=== PATIENT | female | born 1975 | race Caucasian/White ===

== ENCOUNTER 2016-09-13 15:28 | Emergency (ER) | payer OTHER ==
[~2016-09-13] VITALS: Ht 172.7 cm; Wt 104.3 kg
[~2016-09-13 15:28] MED LIST: ALPR0.254 PO; ASPI1TAB30 PO; ASPI325T4 PO; AZIT250T PO; FENO54TA PO; HYDR-2678 PO; METF500T4 PO; METH4TAB2 PO; ONDA4TAB10 SL; PROM25SU32 RC; SIMV80TA3 PO
[2016-09-13] MEDS ORDERED: ASPI81TA2 PO (15:53)
--- NOTE | 2016-09-13 15:53 | PHYS DOC ---
Past Medical History Past Medical History: Anxiety, Diabetes-Type II Additional Past Medical Histor: PANCREATITIS Past Surgical History: Cholecystectomy, Tubal ligation Additional Past Surgical Histo: LAPROSCOPIC ESOPHAGEAL WRAP, HERNIA REPAIR Alcohol Use: Occasionally Drug Use: None Adult General Chief Complaint Chief Complaint: elevated diastolic blood pressure HPI HPI 40-year-old female presenting to the emergency department today with chest pain for 4 days. She describes as a sharp pain in her right chest is nonradiating. It is mild to moderate without alleviating or exacerbating factors. She was at physical therapy today for "chronic numbness in her left side of her body since June 2015 " when the physical therapist took the patient's blood pressure in the patient's diastolic blood pressure was "elevated at 90 mmHg." The patient was then sent here for further evaluation workup and care. The patient denies her chest pain being sudden in onset. She denies it being a tearing sensation. She denies it migrating. Review of systems is negative for cough fevers chills. She denies unilateral leg swelling hemoptysis personal or family history of blood clotting disorders. All other review of systems is negative unless otherwise noted in history of present illness. Review of Systems Review of Systems SEE ABOVE. Allergies Allergies Allergies Coded Allergies Type Severity Reaction Last Updated Verified Penicillins Allergy Intermediate 10/23/13 Yes Sulfa (Sulfonamide Antibiotics) Allergy Intermediate Itching 04/12/16 Yes sulfur dioxide Allergy Intermediate 04/12/16 Yes tramadol Allergy Intermediate 06/20/15 Yes Physical Exam Physical Exam Constitutional: Well developed, well nourished, no acute distress, non-toxic appearance. HENT: Normocephalic, atraumatic, bilateral external ears normal, oropharynx moist, no oral exudates, nose normal. [] Eyes: PERRLA, EOMI, conjunctiva normal, no discharge. Neck: Normal range of motion, no tenderness, supple, no stridor. [] Cardiovascular:Heart rate regular rhythm, no murmur Lungs & Thorax: Bilateral breath sounds clear to auscultation [] Abdomen: Bowel sounds normal, soft, no tenderness, no masses, no pulsatile masses. Skin: Warm, dry, no erythema, no rash. Back: No tenderness, no CVA tenderness. [] Extremities: No tenderness, no cyanosis, no clubbing, ROM intact, no edema. Neurologic: Alert and oriented X 3, normal motor function, normal sensory function, no focal deficits noted. [] Psychologic: Affect normal, judgement normal, mood normal. [] Current Patient Data Vital Signs Vital Signs Date Time Temp Pulse Resp B/P Pulse Ox O2 Delivery O2 Flow Rate FiO2 09/13/16 15:36 99 93 20 145/80 98 Room Air 99.0 Lab Values Laboratory Tests Test 09/13/16 15:50 White Blood Count 12.3x10^3/uL (4.0-11.0) H Red Blood Count 4.60x10^6/uL (3.50-5.40) Hemoglobin 14.4g/dL (12.0-15.5) Hematocrit 43.0% (36.0-47.0) Mean Corpuscular Volume 94fL (79-100) Mean Corpuscular Hemoglobin 31pg (25-35) Mean Corpuscular Hemoglobin Concent 33g/dL (31-37) Red Cell Distribution Width 14.9% (11.5-14.5) H Platelet Count 272x10^3/uL (140-400) Neutrophils (%) (Auto) 60% (31-73) Lymphocytes (%) (Auto) 29% (24-48) Monocytes (%) (Auto) 9% (0-9) Eosinophils (%) (Auto) 2% (0-3) Basophils (%) (Auto) 1% (0-3) Neutrophils # (Auto) 7.4x10^3uL (1.8-7.7) Lymphocytes # (Auto) 3.5x10^3/uL (1.0-4.8) Monocytes # (Auto) 1.1x10^3/uL (0.0-1.1) Eosinophils # (Auto) 0.2x10^3/uL (0.0-0.7) Basophils # (Auto) 0.1x10^3/uL (0.0-0.2) Sodium Level 143mmol/L (136-145) Potassium Level 4.8mmol/L (3.5-5.1) Chloride Level 106mmol/L (98-107) Carbon Dioxide Level 25mmol/L (21-32) Anion Gap 12 (6-14) Blood Urea Nitrogen 13mg/dL (7-20) Creatinine 0.6mg/dL (0.6-1.0) Estimated GFR (Cockcroft-Gault) 110.2 Glucose Level 86mg/dL (70-99) Calcium Level 9.4mg/dL (8.5-10.1) Total Bilirubin 0.4mg/dL (0.2-1.0) Direct Bilirubin < 0.1mg/dL (0.0-0.2) Aspartate Amino Transferase (AST) 45U/L (15-37) H Alanine Aminotransferase (ALT) 59U/L (14-59) Alkaline Phosphatase 69U/L (46-116) Troponin I Quantitative < 0.017ng/mL (0.000-0.055) Total Protein 7.7g/dL (6.4-8.2) Albumin 3.9g/dL (3.4-5.0) Lipase 113U/L (73-393) Laboratory Tests 09/13/16 15:50 Laboratory Tests 09/13/16 15:50 EKG EKG []EKG shows sinus rhythm with regular rate. Normal intervals. Normal axis. ST segments are congruent. Not suggestive of ACS. Reviewed by myself. Radiology/Procedures Radiology/Procedures [] Two-view chest x-ray reviewed by myself shows no obvious infiltrate or pneumothorax. Course & Med Decision Making Course & Med Decision Making Pertinent Labs and Imaging studies reviewed. (See chart for details) [] 40-year-old female presenting to the emergency department today with 4 days of chest pain. Vital signs. Pertinent physical exam findings showed a normal skull exam. Blood work obtained. EKG unremarkable. Chest x-ray obtained. Given that the patient's chest pain is been present for greater than 6 hours with only obtain one troponin. Patient had a mild leukocytosis however does not have a cough or fever. I sat down and had a long discussion with the patient about her left-sided numbness since June 2015. I explained to the patient that the best evaluation for this will be an MRI and given the timing of her symptomatology I recommended outpatient MRI over the next 5-7 days. The patient states that she is currently in the process of getting an outpatient MRI. Patient and here today demonstrated verbal understanding. Patient comfortable with plan. The patient was in discharged home to follow up with her primary care physician over the next 2-3 days as continued. [id number] discharge instructions given. Patient comfortable plan. Dragon Disclaimer Dragon Disclaimer This [facility] medical record was generated, in whole or in part, using a voice recognition dictation system. Departure Departure Impression: Primary Impression: Chest pain Disposition: 01 HOME, SELF-CARE Condition: STABLE Referrals: SHRADDHA GONZALEZ MD (PCP) Patient Instructions: Chest Pain (Nonspecific), [id number] Additional Instructions: Thank you for allowing us to participate in your care today. Followup with your primary care physician in 3 days if your symptoms do not improve. If you do not have a primary care provider you can ask for a list of our primary care providers. Return to the emergency department you have any new or concerning findings. This should be evaluated by the primary care physician and any necessary consulting services for continued management within a few days after discharge. Return to emergency room if you have any new or concerning symptoms including but not limited to fever, chills, nausea, vomiting, intractable pain, any new rashes, chest pain, shortness of air, uncontrolled bleeding, difficulty breathing, and/or vision loss. You may have been prescribed medication that can change in your level of thinking and ability to operate machinery. These medications include hydrocodone and Ativan. Also, Benadryl has been known to do this as well. Be sure to check with your pharmacist and ask if the medications you've prescribed can affect your level of consciousness. I recommend not operating heavy machinery or driving while on medication such as these. Scripts Aspirin 81 Mg Tab.chew1 Tab PO DAILY #7 TAB Ref 0 Prov:YENI JIMENES MD 09/13/16 Problem Qualifiers Primary Impression: Chest pain Chest pain type: unspecified Qualified Code: R07.9 - Chest pain, unspecified YENI JIMENES MD Sep 13, 2016 15:53
--- NOTE | 2016-09-13 15:54 | EKG ---
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
[2016-09-13 16:10] LABS: BASO # 0.1 x10^3/uL (0.0-0.2); BASO % 1 % (0-3); EOS % 2 % (0-3); HEMOGLOBIN 14.4 g/dL (12.0-15.5); LYMPH # 3.5 x10^3/uL (1.0-4.8); LYMPH % 29 % (24-48); MEAN CORPUSCULAR HEMOGLOBIN 31 pg (25-35); MEAN CORPUSCULAR HGB CONC 33 g/dL (31-37); MEAN CORPUSCULAR VOLUME 94 fL (79-100); MONO % 9 % (0-9); NEUT % 60 % (31-73); PLATELET COUNT 272 x10^3/uL (140-400); RED CELL DISTRIBUTION WIDTH 14.9 % (11.5-14.5); WHITE BLOOD COUNT 12.3 x10^3/uL (4.0-11.0)
[2016-09-13 16:16] LABS: ANION GAP 12 (6-14); BLOOD UREA NITROGEN 13 mg/dL (7-20); CALCIUM 9.4 mg/dL (8.5-10.1); CARBON DIOXIDE 25 mmol/L (21-32); CHLORIDE 106 mmol/L (98-107); CREATININE 0.6 mg/dL (0.6-1.0); GFR 110.2; GLUCOSE 86 mg/dL (70-99); POTASSIUM 4.8 mmol/L (3.5-5.1); SODIUM 143 mmol/L (136-145)
[2016-09-13 16:22] LABS: ALBUMIN 3.9 g/dL (3.4-5.0); ALK PHOS 69 U/L (46-116); ALT (SGPT) 59 U/L (14-59); AST (SGOT) 45 U/L (15-37); DIRECT BILIRUBIN < 0.1 mg/dL (0.0-0.2); TOTAL BILIRUBIN 0.4 mg/dL (0.2-1.0); TOTAL PROTEIN 7.7 g/dL (6.4-8.2)
[2016-09-13 17:28] VITALS: BP 154/72
--- NOTE | 2016-09-14 08:32 | RAD ---
Chest, 2 views, 09/13/2016: History: Chest pain, left-sided numbness Comparison is made to a study from 04/12/2016. The heart size and pulmonary vascularity are normal. No pulmonary infiltrates are seen. There is no evidence of pleural fluid. IMPRESSION: No acute cardiopulmonary abnormality is detected.
== END 2016-09-13 17:39 | disposition home or self-care (01) ==
LOC: ER 15:28
DX: R07.89 Other chest pain (principal); D72.829 Elevated white blood cell count, unspecified; R20.0 Anesthesia of skin; E11.9 Type 2 diabetes mellitus without complications; F41.9 Anxiety disorder, unspecified; Z88.0 Allergy status to penicillin; Z88.2 Allergy status to sulfonamides; Z88.5 Allergy status to narcotic agent
CPT/HCPCS: 36415; 71020; 80048; 80076; 83690; 84484; 85027; 93005; 99285-25

== ENCOUNTER → 2016-10-27 | Outpatient (CLI) | payer OTHER ==
[~2016-10-27] MED LIST changes: +ASPI81TA2 PO
--- NOTE | 2016-10-27 13:44 | RAD ---
DATE: 10/27/2016 EXAM: DIGITAL DIAGNOSTIC BILATERAL, BREAST RIGHT HISTORY: Right breast nodule COMPARISON: None available This study was interpreted with the benefit of Computerized Aided Detection (CAD). FINDINGS: There are scattered fibroglandular densities in the breasts. There is a smooth 7 mm nodule at the 1:00 location in the right breast which corresponds to the area of clinical concern. There are no calcifications in this nodule. No other breast nodule or mass is seen. There are scattered microcalcifications in both breasts with the pattern suggesting a benign etiology. Right breast ultrasound, 10/27/2016: A targeted ultrasound exam of the right breast was performed in the area of palpable concern. At the 1-2:00 location there is a small superficial hypoechoic nodule along the posterior margin of the skin. It measures 5 mm in greatest diameter. Its margins are smooth. There is faint posterior acoustic enhancement. There is no internal color flow. There appears to be a small hypoechoic tract extending into the skin. The features are most compatible with an epidermal inclusion cyst. A superficial neoplasm involving the skin is much less likely. IMPRESSION: 1. Small superficial nodule involving the skin at the 1-2:00 location in the right breast which corresponds to the area of palpable concern. This is most likely an epidermal inclusion cyst. Clinical surveillance is suggested. If it enlarges, surgical consultation is suggested. Image guided percutaneous biopsy of a possible epidermal inclusion cyst is not advisable due to cyst leakage and inflammation. 2. Otherwise unremarkable mammograms. BI-RADS CATEGORY: 3 PROBABLY BENIGN FINDING(S)-SHORT INTERVAL FOLLOW-UP SUGGESTED RECOMMENDED FOLLOW-UP: 12M 12 MONTH FOLLOW-UP PQRS compliance statement: Patient information was entered into a reminder system with a target due date for the next mammogram. Mammography is a sensitive method for finding small breast cancers, but it does not detect them all and is not a substitute for careful clinical examination. A negative mammogram does not negate a clinically suspicious finding and should not result in delay in biopsying a clinically suspicious abnormality. "Our facility is accredited by the [employer] Mammography Program."
== END | disposition home or self-care (01) ==
LOC: MAMMO 12:50
PROVIDERS: ATTEND Family Medicine
DX: N63 Unspecified lump in breast (principal)
CPT/HCPCS: 76641; G0204; 77066

== ENCOUNTER 2017-05-22 16:41 | Emergency (ER) | payer OTHER ==
[~2017-05-22 16:41] MED LIST changes: +ASPI-630 PO; -ASPI1TAB30 PO; +ASPI1TAB31 PO; -ASPI325T4 PO; +ASPI325T8 PO; -ASPI81TA2 PO
[2017-05-22] MEDS ORDERED: IOHEXOL 300 MG/ML 100ML VIAL. IV ONE (17:45)
--- NOTE | 2017-05-22 17:45 | EKG ---
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
[2017-05-22 17:48] LABS: BASO # 0.1 x10^3/uL (0.0-0.2); BASO % 1 % (0-3); EOS % 2 % (0-3); HEMATOCRIT 45.7 % (36.0-47.0); HEMOGLOBIN 15.3 g/dL (12.0-15.5); LYMPH # 3.5 x10^3/uL (1.0-4.8); LYMPH % 32 % (24-48); MEAN CORPUSCULAR HEMOGLOBIN 31 pg (25-35); MEAN CORPUSCULAR HGB CONC 33 g/dL (31-37); MEAN CORPUSCULAR VOLUME 94 fL (79-100); MONO % 7 % (0-9); NEUT % 58 % (31-73); PLATELET COUNT 278 x10^3/uL (140-400); RED BLOOD COUNT 4.88 x10^6/uL (3.50-5.40); RED CELL DISTRIBUTION WIDTH 13.9 % (11.5-14.5)
[2017-05-22 17:59] LABS: CALCIUM 8.9 mg/dL (8.5-10.1); CREATININE 0.6 mg/dL (0.6-1.0); GFR 109.6; POTASSIUM 4.2 mmol/L (3.5-5.1)
[2017-05-22] MEDS ORDERED: CONTRAST GIVEN MC PRN (18:00)
[2017-05-22] MEDS ORDERED: ONDANSETRON PF 4 MG/2 ML VIAL. IV ONE ×2 (18:00)
[2017-05-22] MEDS ORDERED: IV NORMAL SALINE 1000ML BAG 1,000 ML IV SCH (18:00)
[2017-05-22 18:04] LABS: ALBUMIN/GLOBULIN RATIO 1.1 (1.0-1.7); TOTAL BILIRUBIN 0.2 mg/dL (0.2-1.0); TOTAL PROTEIN 7.6 g/dL (6.4-8.2)
--- NOTE | 2017-05-22 18:16 | ED.ADGEN ---
Past Medical History Past Medical History: Anxiety, Diabetes-Type II, Other Additional Past Medical Histor: PANCREATITIS Past Surgical History: Cholecystectomy, Tubal ligation, Other Additional Past Surgical Histo: LAPROSCOPIC ESOPHAGEAL WRAP, HERNIA REPAIR Alcohol Use: Occasionally Drug Use: None Adult General Chief Complaint Chief Complaint: HEADACHE HPI HPI Patient is a 41 year old woman, history of type 2 diabetes mellitus, off medications after weight loss diet control, who presents to the emergency department with a complaint of a posterior headache for the past 4 days. Patient states that she first noted headache in the back of her neck, radiating into the upper part of her shoulders, states it is a burning sensation that radiates up the back part of her head, associated with blurred vision, and a feeling of being off balance. She states that she feels nauseous as well, denies any vomiting, any focal weakness, states that occasionally he'll have "lightninglike" pain shooting into her arms. She denies any injuries, any chiropractic visits or medical interventions, states that she was seen at another hospital 2 days ago, and was discharged home with Percocet, naproxen, and Flexeril. She started to follow up with primary care provider. She states his grandson today because she is feeling worse, cannot see her primary until Tuesday. Patient denies any falls or injuries, any recent travel or surgery, any chest pain, states she has occasional shortness of breath, no cough, no diarrhea, no swelling extremities, no rashes, no ear pain, no sore throat or rhinorrhea, no nasal congestion. Denies any similar symptoms previously. She states her last dose of medication about 6 hours ago. She states that the medication "masks the pain", but she is still feeling dizzy and off-balance. Patient noted be tachycardic, heart rate in the 1 teens upon arrival to the emergency department. She states that she's been eating and drinking well aside from the nausea. Review of Systems Review of Systems Constitutional: Denies fever or chills. [] Eyes: Denies change in visual acuity. [] HENT: Denies nasal congestion or sore throat. [] Respiratory: Denies cough or shortness of breath. [] Cardiovascular: Denies chest pain or edema. [] GI: Denies abdominal pain, nausea, vomiting, bloody stools or diarrhea. [] : Denies dysuria. [] Musculoskeletal: Denies back pain or joint pain. [] Integument: Denies rash. [] Neurologic: Posterior headache, and neck pain, no focal weakness, occasional "lightning" shooting sensations in her upper extremities. Endocrine: Denies polyuria or polydipsia. [] Lymphatic: Denies swollen glands. [] Psychiatric: Denies depression or anxiety. [] Current Medications Current Medications Current Medications Medications (Trade) Dose Ordered Sig/Amber Start Time Stop Time Status Last Admin Dose Admin Info (Do NOT chart on this entry -- for MONITORING) 1 each PRN DAILY PRN 05/22/17 18:00 05/22/17 20:56 DC Iohexol (Omnipaque 300 Mg/ml) 75 ml 1X ONCE 05/22/17 17:45 05/22/17 17:48 DC 05/22/17 18:07 75 ML Ketorolac Tromethamine (Toradol) 10 mg 1X ONCE 05/22/17 19:45 05/22/17 19:46 DC 05/22/17 19:28 10 MG Lidocaine HCl (Xylocaine-Mpf 1% Vial) 5 ml 1X ONCE 05/22/17 19:45 05/22/17 19:46 DC 05/22/17 19:52 5 ML Ondansetron HCl (Zofran) 4 mg 1X ONCE 05/22/17 18:00 05/22/17 18:01 DC Sodium Chloride 1,000 ml @ 1,000 mls/hr Q1H 05/22/17 18:00 05/22/17 18:59 DC 05/22/17 17:58 1,000 MLS/HR Allergies Allergies Allergies Coded Allergies Type Severity Reaction Last Updated Verified Penicillins Allergy Intermediate 10/23/13 Yes Sulfa (Sulfonamide Antibiotics) Allergy Intermediate Itching 04/12/16 Yes sulfur dioxide Allergy Intermediate 04/12/16 Yes tramadol Allergy Intermediate 06/20/15 Yes Physical Exam Physical Exam Constitutional: Well developed, well nourished, no acute distress, non-toxic appearance. [] HENT: Normocephalic, atraumatic, bilateral external ears normal, oropharynx moist, no oral exudates, nose normal. [] Eyes: PERRLA, EOMI, conjunctiva normal, no discharge. [] Neck: Normal range of motion, no tenderness, supple, no stridor. [] Cardiovascular:Heart rate regular rhythm, no murmur , S1, S2, no rubs or gallops , mildly tachycardic.[] Lungs & Thorax: Bilateral breath sounds clear to auscultation, no wheezing, rhonchi, rales. No chest wall crepitus or tenderness. [] Abdomen: Bowel sounds normal, soft, no tenderness, no rebound, rigidity, no guarding, no masses, no pulsatile masses. [] Skin: Warm, dry, no erythema, no rash. [] Back: No tenderness, no CVA tenderness. [] Extremities: No tenderness, no cyanosis, no clubbing, ROM intact, no edema. Negative Homans sign.[] Neurologic: Alert and oriented X 3, normal motor function, normal sensory function, no focal deficits noted. [] Psychologic: Affect normal, judgement normal, mood normal. [5 out of 5 strength in all extremities, with normal sensation, normal cranial nerve function, patient with 20/20 vision bilaterally. Current Patient Data Vital Signs Vital Signs Date Time Temp Pulse Resp B/P (MAP) Pulse Ox O2 Delivery O2 Flow Rate FiO2 05/22/17 20:43 96 18 05/22/17 19:57 100 Room Air 05/22/17 16:50 98.4 139/65 (89) 98.4 Lab Values Laboratory Tests Test 05/22/17 17:10 05/22/17 18:50 White Blood Count 11.0 x10^3/uL (4.0-11.0) Red Blood Count 4.88 x10^6/uL (3.50-5.40) Hemoglobin 15.3 g/dL (12.0-15.5) Hematocrit 45.7 % (36.0-47.0) Mean Corpuscular Volume 94 fL (79-100) Mean Corpuscular Hemoglobin 31 pg (25-35) Mean Corpuscular Hemoglobin Concent 33 g/dL (31-37) Red Cell Distribution Width 13.9 % (11.5-14.5) Platelet Count 278 x10^3/uL (140-400) Neutrophils (%) (Auto) 58 % (31-73) Lymphocytes (%) (Auto) 32 % (24-48) Monocytes (%) (Auto) 7 % (0-9) Eosinophils (%) (Auto) 2 % (0-3) Basophils (%) (Auto) 1 % (0-3) Neutrophils # (Auto) 6.4 x10^3uL (1.8-7.7) Lymphocytes # (Auto) 3.5 x10^3/uL (1.0-4.8) Monocytes # (Auto) 0.8 x10^3/uL (0.0-1.1) Eosinophils # (Auto) 0.2 x10^3/uL (0.0-0.7) Basophils # (Auto) 0.1 x10^3/uL (0.0-0.2) Sodium Level 137 mmol/L (136-145) Potassium Level 4.2 mmol/L (3.5-5.1) Chloride Level 100 mmol/L (98-107) Carbon Dioxide Level 29 mmol/L (21-32) Anion Gap 8 (6-14) Blood Urea Nitrogen 16 mg/dL (7-20) Creatinine 0.6 mg/dL (0.6-1.0) Estimated GFR (Cockcroft-Gault) 109.6 BUN/Creatinine Ratio 27 (6-20) H Glucose Level 102 mg/dL (70-99) H Calcium Level 8.9 mg/dL (8.5-10.1) Total Bilirubin 0.2 mg/dL (0.2-1.0) Aspartate Amino Transferase (AST) 19 U/L (15-37) Alanine Aminotransferase (ALT) 25 U/L (14-59) Alkaline Phosphatase 80 U/L (46-116) Total Protein 7.6 g/dL (6.4-8.2) Albumin 4.0 g/dL (3.4-5.0) Albumin/Globulin Ratio 1.1 (1.0-1.7) Urine Collection Type Unknown Urine Color Yellow Urine Clarity Clear Urine pH 7.0 Urine Specific [place] >=1.030 Urine Protein Negative mg/dL (NEG-TRACE) Urine Glucose (UA) Negative mg/dL (NEG) Urine Ketones (Stick) Negative mg/dL (NEG) Urine Blood Negative (NEG) Urine Nitrite Negative (NEG) Urine Bilirubin Negative (NEG) Urine Urobilinogen Dipstick 0.2 mg/dL (0.2 mg/dL) Urine Leukocyte Esterase Negative (NEG) Urine RBC 0 /HPF (0-2) Urine WBC 0 /HPF (0-4) Urine Squamous Epithelial Cells Mod /LPF Urine Bacteria 0 /HPF (0-FEW) Urine Opiates Screen Neg (NEG) Urine Methadone Screen Neg (NEG) Urine Barbiturates Neg (NEG) Urine Phencyclidine Screen Neg (NEG) Urine Amphetamine/Methamphetamine Pos (NEG) Urine Benzodiazepines Screen Neg (NEG) Urine Cocaine Screen Neg (NEG) Urine Cannabinoids Screen Neg (NEG) Urine Ethyl Alcohol Neg (NEG) Laboratory Tests 05/22/17 17:10 Laboratory Tests 05/22/17 17:10 EKG EKG EC: Sinus tachycardia, heart rate 109 beats are minute, upright axis, QTC of 4:30, ME of 112, QRS of 78, no ST elevations or depressions, patient with P-wave notching noted, abnormal ECG, does not meet STEMI criteria. As interpreted by me.[] Radiology/Procedures Radiology/Procedures [][facility] [address] [place], [place] [id number] IMAGING REPORT Signed PATIENT: MERY CALDWELL ACCOUNT: [id number] : 1975 LOCATION: ER AGE: 41 SEX: F EXAM STATUS: REG ER ORD. PHYSICIAN: MARGY MAN DO REASON: GONZALEZ/neck pain/vision change PROCEDURE: CT HEAD WO CONTRAST CT head without contrast: Reason for examination: Head and neck pain and visual changes for one week. Axial images were obtained through the brain. No contrast was administered. Exposure: One or more of the following individualized dose reduction techniques were utilized for this examination: 1. Automated exposure control 2. Adjustment of the mA and/or kV according to patient size 3. Use of iterative reconstruction technique. Ventricular systems are symmetric and not dilated. No midline shift is seen. There is no evidence of intracranial hemorrhage, infarct, mass or edema. No abnormalities are seen at the orbits. The paranasal sinuses and mastoid air cells are clear. No acute skull abnormality is seen. IMPRESSION: No acute intracranial abnormality evident. Electronically signed by: Katelyn Dykes MD (05/22/2017 6:44 PM) [facility] DICTATED and SIGNED BY: KATELYN DYKES MD DATE: 05/22/171841 CC: SHRADDHA GONZALEZ MD; MARGY MAN DO ~ Impressions: [facility] [address] [place] [address] IMAGING REPORT Signed PATIENT: MERY CALDWELL ACCOUNT: [id number] : 1975 LOCATION: ER AGE: 41 SEX: F EXAM STATUS: REG ER ORD. PHYSICIAN: MARGY MAN DO REASON: GONZALEZ/neck pain/vision change PROCEDURE: CT ANGIOGRAPHY HEAD AND NECK CT angiogram of the head and neck with contrast: Reason for examination: Head and neck pain for one week with visual changes. Helical images were obtained through the head and neck with intravenous administration of 75 cc Omnipaque 300 using angiographic protocol. 3-D MIPS reconstruction was performed in sagittal and coronal planes and volume rendered images were obtained. Exposure: One or more of the following individualized dose reduction techniques were utilized for this examination: 1. Automated exposure control 2. Adjustment of the mA and/or kV according to patient size 3. Use of iterative reconstruction technique. The visualized portions of the dural sinuses appear to be patent. The intracranial carotid arteries, anterior cerebral arteries, middle cerebral arteries, anterior and posterior communicating arteries, vertebrobasilar system, superior cerebellar arteries and posterior cerebral arteries appear to be patent. No aneurysms or arterial venous malformations are identified. No focal enhancing lesions are seen in the brain. No abnormalities are seen at the orbits. In the neck, the right brachiocephalic artery, left common carotid artery and left subclavian arteries show normal origins from the arch with no stenoses. The common carotid arteries bilaterally, the internal carotid arteries and the external carotid arteries show no sites of significant stenosis. The vertebral arteries arise from their respective subclavian arteries with no stenoses or occlusions or evidence of dissection. The jugular veins are patent. No abnormalities are seen at the trachea, the thyroid gland shows no abnormality. No abnormality seen in the visualized portion of the esophagus. The vallecula and piriform sinuses are symmetric. Vocal cords are symmetric. No abnormality seen at the sternocleidomastoid muscles. No abnormalities are seen at the parotid glands or submandibular glands. IMPRESSION: No vascular abnormality seen in the head or neck. No acute abnormality seen in the brain or neck. Stenosis calculations for CT, MR and conventional angiography are based upon measurements of the distal ICA diameter in accordance with the NASCET methodology. Electronically signed by: Katelyn Dykes MD (05/22/2017 6:56 PM) [facility] DICTATED and SIGNED BY: KATELYN DYKES MD DATE: 05/22/17 1840 CC: SHRADDHA GONZALEZ MD; MARGY MAN DO ~ Course & Med Decision Making Course & Med Decision Making Pertinent Labs and Imaging studies reviewed. (See chart for details) Patient noted to be mildly tachycardic, ECG does not reveal any concerning findings aside from tachycardia. Patient states that she has a history in her family of potential AVMs and of a "brain tumor", and an aunt, due to her symptoms, and complaints, although her neurologic examination in the ED is unremarkable, we'll proceed with CT of the head and CTA of the head and neck to rule out any occult abnormalities. Patient also received laboratory studies, IV fluids, antiemetics. CT imaging of the head and neck was unremarkable. I did discuss this with patient, she at this point has received IV analgesia, antiemetics, IV fluids, and a lidocaine neb. She states that she is feeling better at this point although she still is some headache. Patient states the photophobia is resolved, is now sitting upright comfortably with the lights on in the room. Has not ambulated to the bathroom without difficulty.. As stated she appears to have significant tension in the neck extending up into the head which began intermittently to this discomfort. Patient states that she does have cyclobenzaprine and naproxen home, states that she is out of Percocet. I did discuss with the patient that narcotics are not appropriate for use for headache, and that she would have to discuss use of continued narcotics with her primary care provider. Patient states she will contact her primary care provider tomorrow. Patient's tachycardia has resolved in the emergency department, heart rate is in the 90s, patient is ambulating without difficulty in the ED, although she does state that she still has some residual dizziness. I did discuss potentially admission to the hospital with patient, for additional evaluation, although as stated we did not identify any acutely concerning findings during her evaluation the ED as she does have persistent symptoms, patient states that she would prefer to be discharged home, can follow -up with her primary care provider, and will return to the ED if any new or concerning symptoms develop or if symptoms worsen. Patient discharged home in stable condition with plan, and precautions as above, to follow-up with her primary care provider, and to return to the ED as needed. Dragon Disclaimer Dragon Disclaimer This electronic medical record was generated, in whole or in part, using a voice recognition dictation system. Departure Impression: Primary Impression: Headache Disposition: 01 HOME, SELF-CARE Condition: IMPROVED MARGY MAN DO May 22, 2017 18:16
--- NOTE | 2017-05-22 18:47 | RAD ---
CT head without contrast: Reason for examination: Head and neck pain and visual changes for one week. Axial images were obtained through the brain. No contrast was administered. Exposure: One or more of the following individualized dose reduction techniques were utilized for this examination: 1. Automated exposure control 2. Adjustment of the mA and/or kV according to patient size 3. Use of iterative reconstruction technique. Ventricular systems are symmetric and not dilated. No midline shift is seen. There is no evidence of intracranial hemorrhage, infarct, mass or edema. No abnormalities are seen at the orbits. The paranasal sinuses and mastoid air cells are clear. No acute skull abnormality is seen. IMPRESSION: No acute intracranial abnormality evident. Electronically signed by: Katelyn Bourgeois MD (05/22/2017 6:44 PM) [facility]
--- NOTE | 2017-05-22 19:00 | RAD ---
CT angiogram of the head and neck with contrast: Reason for examination: Head and neck pain for one week with visual changes. Helical images were obtained through the head and neck with intravenous administration of 75 cc Omnipaque 300 using angiographic protocol. 3-D MIPS reconstruction was performed in sagittal and coronal planes and volume rendered images were obtained. Exposure: One or more of the following individualized dose reduction techniques were utilized for this examination: 1. Automated exposure control 2. Adjustment of the mA and/or kV according to patient size 3. Use of iterative reconstruction technique. The visualized portions of the dural sinuses appear to be patent. The intracranial carotid arteries, anterior cerebral arteries, middle cerebral arteries, anterior and posterior communicating arteries, vertebrobasilar system, superior cerebellar arteries and posterior cerebral arteries appear to be patent. No aneurysms or arterial venous malformations are identified. No focal enhancing lesions are seen in the brain. No abnormalities are seen at the orbits. In the neck, the right brachiocephalic artery, left common carotid artery and left subclavian arteries show normal origins from the arch with no stenoses. The common carotid arteries bilaterally, the internal carotid arteries and the external carotid arteries show no sites of significant stenosis. The vertebral arteries arise from their respective subclavian arteries with no stenoses or occlusions or evidence of dissection. The jugular veins are patent. No abnormalities are seen at the trachea, the thyroid gland shows no abnormality. No abnormality seen in the visualized portion of the esophagus. The vallecula and piriform sinuses are symmetric. Vocal cords are symmetric. No abnormality seen at the sternocleidomastoid muscles. No abnormalities are seen at the parotid glands or submandibular glands. IMPRESSION: No vascular abnormality seen in the head or neck. No acute abnormality seen in the brain or neck. Stenosis calculations for CT, MR and conventional angiography are based upon measurements of the distal ICA diameter in accordance with the NASCET methodology. Electronically signed by: Katelyn Bourgeois MD (05/22/2017 6:56 PM) [facility]
[2017-05-22 19:14] LABS: BILIRUBIN,URINE NEGATIVE (NEG); GLUCOSE,URINE NEGATIVE (NEG); NITRITE,URINE NEGATIVE (NEG); PROTEIN,URINE NEGATIVE (NEG-TRACE); UROBILINOGEN,URINE 0.2 mg/dL (0.2 mg/dL)
[2017-05-22 19:21] LABS: BARBITURATES NEG (NEG); BENZODIAZEPINES NEG (NEG); CANNABINOIDS NEG (NEG); COCAINE NEG (NEG); METHADONE NEG (NEG); OPIATES NEG (NEG); PHENCYCLIDINE NEG (NEG)
[2017-05-22 19:22] LABS: BACTERIA,URINE 0 /HPF (0-FEW); RBC,URINE 0 /HPF (0-2); SQUAMOUS EPITHELIAL CELL,UR MOD /LPF; WBC,URINE 0 /HPF (0-4)
[2017-05-22] MEDS ORDERED: LIDOCAINE 1% PF 2 ML VIAL. NEB ONE (19:45)
[2017-05-22] MEDS ORDERED: KETOROLAC 15 MG/ML VIAL. IV ONE (19:45)
[2017-05-22 20:43] VITALS: BP 112/68
== END 2017-05-22 20:50 | disposition home or self-care (01) ==
LOC: ER 16:41
DX: R51 Headache (principal); H53.8 Other visual disturbances; R42 Dizziness and giddiness; E11.9 Type 2 diabetes mellitus without complications; F41.9 Anxiety disorder, unspecified; Z88.0 Allergy status to penicillin; Z88.2 Allergy status to sulfonamides; Z88.6 Allergy status to analgesic agent
CPT/HCPCS: 36415; 70450; 70496; 70498; 80053; 80307; 81001; 81025; 85025; 93005; 94640; 96361; 96374; 96375; 99285; J1885; J2405; J7030; Q9967; G0479

== ENCOUNTER 2021-05-05 04:15 | Emergency (ER) | payer MEDICAID, OTHER ==
[~2021-05-05] VITALS: Ht 170.2 cm; Wt 90.0 kg
[~2021-05-05 04:15] MED LIST changes: +METF500T16 PO; -METF500T4 PO; +SIMV80TA17 PO; -SIMV80TA3 PO
[2021-05-05 04:41] VITALS: BP 145/105
[2021-05-05] MEDS ORDERED: CEPH500C PO (04:49)
--- NOTE | 2021-05-05 04:49 | PHYS DOC ---
Past Medical History Past Medical History: Anxiety, Diabetes-Type II, Other Additional Past Medical Histor: PANCREATITIS Past Surgical History: Cholecystectomy, Tubal ligation, Other Additional Past Surgical Histo: LAPROSCOPIC ESOPHAGEAL WRAP, HERNIA REPAIR Smoking Status: Current Every Day Smoker Alcohol Use: Occasionally Drug Use: None General Adult EDM: Chief Complaint: INSECT BITE HPI: HPI: Patient is a 45 year old female presents for evaluation of insect bite right back. On exam scab lesion right scapula. Surrounding erythema. No drainage or fluctuant fluid collection. Patient has been using [id number] topical medications with no relief. Review of Systems: Review of Systems: Constitutional: Denies fever or chills. [] Eyes: Denies change in visual acuity. [] HENT: Denies nasal congestion or sore throat. [] Respiratory: Denies cough or shortness of breath. [] Cardiovascular: Denies chest pain or edema. [] GI: Denies abdominal pain, nausea, vomiting, bloody stools or diarrhea. [] : Denies dysuria. [] Musculoskeletal: Denies back pain or joint pain. [] Integument: Denies rash. Positive erythema positive wound [] Neurologic: Denies headache, focal weakness or sensory changes. [] Endocrine: Denies polyuria or polydipsia. [] Lymphatic: Denies swollen glands. [] Psychiatric: Denies depression or anxiety. [] Heart Score: C/O Chest Pain: N/A Risk Factors: Risk Factors: DM, Current or recent (<one month) smoker, HTN, HLP, family history of CAD, obesity. Risk Scores: Score 0 - 3: 2.5% MACE over next 6 weeks - Discharge Home Score 4 - 6: 20.3% MACE over next 6 weeks - Admit for Clinical Observation Score 7 - 10: 72.7% MACE over next 6 weeks - Early Invasive Strategies Allergies: Allergies: Allergies Coded Allergies Type Severity Reaction Last Updated Verified Penicillins Allergy Intermediate 10/23/13 Yes Sulfa (Sulfonamide Antibiotics) Allergy Intermediate Itching 04/12/16 Yes sulfur dioxide Allergy Intermediate 04/12/16 Yes tramadol Allergy Intermediate 06/20/15 Yes Physical Exam: PE: Constitutional: Well developed, well nourished, no acute distress, non-toxic appearance. [] HENT: Normocephalic, atraumatic, bilateral external ears normal, oropharynx moist, no oral exudates, nose normal. [] Eyes: PERRLA, EOMI, conjunctiva normal, no discharge. [] Neck: Normal range of motion, no tenderness, supple, no stridor. [] Cardiovascular:Heart rate regular rhythm, no murmur [] Lungs & Thorax: Bilateral breath sounds clear to auscultation [] Abdomen: Bowel sounds normal, soft, no tenderness, no masses, no pulsatile masses. [] Skin: Warm, dry, erythema right scapula wound scab-like with surrounding erythe ma nonfluctuant no fluid collection no wound drainage Back: No tenderness, no CVA tenderness. [] Extremities: No tenderness, no cyanosis, no clubbing, ROM intact, no edema. [] Neurologic: Alert and oriented X 3, normal motor function, normal sensory function, no focal deficits noted. [] Psychologic: Affect normal, judgement normal, mood normal. [] Current Patient Data: Vital Signs: Vital Signs Date Time Temp Pulse Resp B/P (MAP) Pulse Ox O2 Delivery O2 Flow Rate FiO2 05/05/21 04:41 98.2 121 16 145/105 (118) 98 Room Air 98.2 EKG: EKG: [] Radiology/Procedures: Radiology/Procedures: [] Course & Med Decision Making: Course & Med Decision Making Pertinent Labs and Imaging studies reviewed. (See chart for details) [] We will place patient on Keflex. Dragon Disclaimer: Dragbashir Disclaimer: This electronic medical record was generated, in whole or in part, using a voice recognition dictation system. Departure Departure Impression: Primary Impression: Skin infection Additional Impression: Insect bite Disposition: HOME / SELF CARE / HOMELESS Condition: STABLE Referrals: SHRADDHA GONZALEZ MD (PCP) Patient Instructions: Insect Bite Scripts Cephalexin (KEFLEX) 500 Mg Capsule 1 CAP PO QID, #40 CAP Prov: SEKOU HUFF DO 05/05/21 SEKOU HUFF DO May 05, 2021 04:49
== END 2021-05-05 05:02 | disposition home or self-care (01) ==
LOC: ER 04:15
DX: S30.860A Insect bite (nonvenomous) of lower back and pelvis, initial encounter (principal); E11.9 Type 2 diabetes mellitus without complications; F17.200 Nicotine dependence, unspecified, uncomplicated; Z88.0 Allergy status to penicillin; Z88.2 Allergy status to sulfonamides; Z88.6 Allergy status to analgesic agent; W57.XXXA Bitten or stung by nonvenomous insect and other nonvenomous arthropods, initial encounter; Y93.89 Activity, other specified; Y92.89 Other specified places as the place of occurrence of the external cause; Y99.8 Other external cause status
CPT/HCPCS: 99283